=== PATIENT | female | born 1985 | race Caucasian/White ===

== ENCOUNTER 2017-01-30 12:55 | Outpatient (CLI) | payer MEDICAID ==
[~2017-01-30] VITALS: Ht 154.9 cm; Wt 57.9 kg
[~2017-01-30 12:55] MED LIST changes: -CETI10TA20 PO
[2017-01-30] MEDS ORDERED: CETI10TA20 PO (13:13)
[2017-01-30 13:18] VITALS: BP 111/70
[2017-01-30 13:47] LABS: BASOPHILS # (AUTO) 0.1 10^3/uL (0.0-0.1); BASOPHILS % (AUTO) 1 % (0-10); EOSINOPHILS # (AUTO) 0.2 10^3/uL (0.0-0.3); EOSINOPHILS % (AUTO) 3 % (0-10); LYMPHOCYTES # (AUTO) 2.9 X 10^3 (1.0-4.0); LYMPHOCYTES % (AUTO) 36 % (12-44); MEAN CORPUSCULAR HEMOGLOBIN 30 PG (25-34); MEAN CORPUSCULAR HGB CONC 34 G/DL (32-36); MEAN CORPUSCULAR VOLUME 88 FL (80-99); MEAN PLATELET VOLUME 10.5 FL (7.4-10.4); MONOCYTES # (AUTO) 0.7 X 10^3 (0.0-1.0); MONOCYTES % (AUTO) 8 % (0-12); NEUTROPHILS # (AUTO) 4.2 X 10^3 (1.8-7.8); NEUTROPHILS % (AUTO) 52 % (42-75); PLATELET COUNT 252 10^3/uL (130-400); RED BLOOD COUNT 4.59 10^6/uL (4.35-5.85); RED CELL DISTRIBUTION WIDTH 13.1 % (10.0-14.5); WHITE BLOOD COUNT 8.1 10^3/uL (4.3-11.0)
[2017-02-13] MEDS ORDERED: HYDR-3816 PO (11:36)
[2017-02-13] MEDS ORDERED: IBUP-1773 PO (11:36)
[2017-02-13] MEDS ORDERED: SIME80TA16 PO (11:36)
[2017-02-13] MEDS ORDERED: DOCU100C37 PO (11:36)
[2017-02-14] MEDS ORDERED: OXYC-471 PO (09:05)
[2017-02-14] MEDS ORDERED: ONDA4TAB8 PO (09:05)
== END 2017-01-30 16:00 ==
LOC: PREOP 12:55
PROVIDERS: ATTEND Obstetrics & Gynecology
DX: Z01.812 Encounter for preprocedural laboratory examination (principal); Z11.2 Encounter for screening for other bacterial diseases; N87.1 Moderate cervical dysplasia
CPT/HCPCS: 36415; 85025; 86850; 86900; 86901; 87081

== ENCOUNTER → 2017-01-30 | Outpatient (CLI) | payer MEDICAID ==
[~2017-01-30] MED LIST: CETI10TA20 PO; CRS350T PO; CYCL10TA9 PO; HYDR-2997 PO; HYDR1TAB PO; MULT-608; NAPR-243 PO; TRM50T PO
--- NOTE | 2017-01-30 13:42 | Diagnostic Imaging Report ---
INDICATION: Abnormal uterine bleeding, dysmenorrhea. COMPARISON: 05/03/2015. DISCUSSION: Transabdominal and transvaginal sonographic evaluation of the pelvis was performed. The uterus is normal in echotexture and size measuring 8.8 x 4.7 x 3.7 cm. Normal endometrial thickness measuring 0.5 cm. The ovaries appear normal in echotexture and size bilaterally with normal color Doppler blood flow. The right ovary measures 2.6 x 1.6 x 3.1 cm. The left ovary measures 3.0 x 2.6 x 1.8 cm. No abnormal adnexal mass or fluid. IMPRESSION: 1. Unremarkable pelvic ultrasound. Dictated by: Dictated on workstation # [id number]
== END ==
LOC: RAD 12:20
PROVIDERS: ATTEND Obstetrics & Gynecology
DX: N93.8 Other specified abnormal uterine and vaginal bleeding (principal); N94.5 Secondary dysmenorrhea
CPT/HCPCS: 76830; 76856

== ENCOUNTER 2017-02-13 08:35 | Day surgery (SDC) | payer MEDICAID ==
[~2017-02-13] VITALS: Ht 154.9 cm; Wt 57.9 kg
[~2017-02-13 08:35] MED LIST changes: +CETI10TA20 PO
[2017-02-13] MEDS ORDERED: ceFAZolin 1,000 MG (ANCEF) VIAL ONE (08:51)
[2017-02-13] MEDS ORDERED: NS (IVPB) 50 ML ONE (08:51)
[2017-02-13] MEDS ORDERED: ceFAZolin 1 GM/NS 50 ML IVPB IV ONE ×2 (09:00)
[2017-02-13] MEDS ORDERED: metroNIDAZOLE 500 MG/100 ML IVPB (PRE-MIX) IV ONE (09:00)
[2017-02-13] MEDS ORDERED: CATHETER FLUSH 10 ML SYR IV PRN (09:00)
[2017-02-13 09:06] VITALS: BP 120/73
[2017-02-13] MEDS ORDERED: HURRICAINE EXT TUBE (BENZOCAINE) ONE (09:16)
[2017-02-13] MEDS ORDERED: LIDOCAINE PF 2% 5 ML (XYLOCAINE) VIAL ONE (09:16)
[2017-02-13] MEDS ORDERED: SEVOFLURANE (ULTANE) 15 ML INHAL SOLN ONE ×7 (09:16→11:17)
[2017-02-13] MEDS ORDERED: proPOfol 200 MG/20 ML (DIPRIVAN) VIAL IV ONE (09:16)
[2017-02-13] MEDS ORDERED: fentaNYL INJECTION 100 MCG/2 ML AMP ONE (09:16)
[2017-02-13] MEDS ORDERED: MIDAZOLAM 2 MG/2 ML (VERSED) VIAL ONE (09:17)
[2017-02-13] MEDS ORDERED: BUP/EPI 0.5% 1:200,000 (MARCAINE) 10ML VIAL IJ ONE (09:18)
[2017-02-13] MEDS ORDERED: ATRACURIUM 50 MG/5 ML (TRACRIUM) IV ONE (09:21)
[2017-02-13] MEDS: LACTATED RINGERS 1,000 ML IV PRN ×2 (09:39→10:49)
--- NOTE | 2017-02-13 09:57 | Progress Note-Pre Operative ---
Pre-Operative Progress Note H&P Reviewed The H&P was reviewed, patient examined and no changes noted. Date Seen by Provider: Feb 13, 2017 Time Seen by Provider: 09:45 Date H&P Reviewed: Feb 13, 2017 Time H&P Reviewed: 09:50 Pre-Operative Diagnosis: Dysmenorrhea, Recurrent cervical dysplasia AMBER MATA DO Feb 13, 2017 9:57 am
[2017-02-13] MEDS ORDERED: CHLORASEPTIC LOZENGE MM PRN (10:15)
[2017-02-13] MEDS ORDERED: ZOLPIDEM 5 MG (AMBIEN) TAB PO PRN (10:15)
[2017-02-13] MEDS ORDERED: ONDANSETRON 4 MG/2 ML (SDV) Z0FRAN IV PRN (10:15)
[2017-02-13] MEDS ORDERED: DOCUSATE SODIUM 100 MG (COLACE) CAP PO PRN (10:15)
[2017-02-13] MEDS ORDERED: morphine INJ 10 MG/ML 1ML (SYR OR VIAL) ONE (11:15)
[2017-02-13] MEDS ORDERED: GLYCOPYRROLATE 0.2 MG/ML (ROBINUL) 2 ML VIAL ONE (11:27)
[2017-02-13] MEDS ORDERED: NEOSTIGMINE (BLOXIVERZ ) 1 MG/1ML 10 ML VIAL ONE (11:27)
[2017-02-13] MEDS ORDERED: DOCU100C37 PO (11:36)
[2017-02-13] MEDS ORDERED: HYDR-3816 PO (11:36)
[2017-02-13] MEDS ORDERED: IBUP-1773 PO (11:36)
[2017-02-13] MEDS ORDERED: SIME80TA16 PO (11:36)
--- NOTE | 2017-02-13 11:36 | Discharge Inst-Women's Service ---
Discharge Inst-Women's Serv Depart Medication/Instructions New, Converted or Re-Newed RX: RX on Chart Consults/Follow Up Orders/Referrals Dr. Estrada in 7-10 days and in 8 weeks Activity Activity: Activity as Tolerated Driving Instructions: No Driving for 1 Week NO SMOKING: NO SMOKING Nothing Inside Vagina: No Douching, No [place], No Tampons Diet Discharge Diet: No Restrictions Symptoms to Report to : Bleeding Excessive, Pain Increased, Fever Over 101 Degrees F, Vaginal Bleeding Increase, Questions/Concerns For Any Problems or Questions: Contact Your Physician Skin/Wound Care Infection Signs and Symptoms: Increased Redness, Foul Odor of Wound, Increased Drainage, Skin Itchy or Has a Rash, Increased Swelling, Temperature Above 101 F Operative Area Clean and Dry: Keep Incision Clean/Dry Stitches/Provencal/Dermabond: Dermabond, Care of Stitches Bathing Instructions: AMBER Vallejo DO Feb 13, 2017 11:36
[2017-02-13] MEDS: morphine INJ 10 MG/ML 1ML (SYR OR VIAL) IVP PRN ×2 (11:50→11:58)
--- OUTSIDE RECORDS SUMMARY | 2017-02-13 11:52 | XMS REPORT ---
Author Author ABEL PRATER Organization [employer] Address Unknown Phone Unavailable Care Team Providers Care Hotel Attendant Name Role Phone ABEL PRATER CP Unavailable Allergies No Known Allergies Problems Problem Type Condition Code Onset Dates Condition Status Problem Unspecified alopecia 704.00 Active Problem Unspecified episodic mood disorder 296.90 Active Problem Papanicolaou smear of cervix with atypical squamous cells of undetermined significance (ASC-US) 795.01 Active Problem Unspecified myalgia and myositis 729.1 Active Problem Dysmenorrhea 625.3 Active Problem Lumbago 724.2 Active Problem Headache 784.0 Active Problem Generalized anxiety disorder 300.02 Active Problem 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 Problem Routine gynecological examination V72.31 Active Problem Unspecified disorder of skin and subcutaneous tissue 709.9 Active Problem Other diseases of nasal cavity and sinuses 478.19 Active Problem Allergic rhinitis due to pollen 477.0 Active Problem Acute bronchitis 466.0 Active Problem Abdominal pain, right lower quadrant 789.03 Active Problem Need for prophylactic vaccination and inoculation, Influenza V04.81 Active Problem Endometriosis, site unspecified 617.9 Active Problem Other abnormal Papanicolaou smear of vagina and vaginal HPV 795.19 Active Problem Screening for malignant neoplasm of the cervix V76.2 Active Problem Screening examination for venereal disease V74.5 Active Problem Unspecified symptom associated with female genital organs 625.9 Active Problem Other malaise and fatigue 780.79 Active Problem Insomnia, unspecified 780.52 Active Problem Influenza with other respiratory manifestations 487.1 Active Problem Anxiety state, unspecified 300.00 Active Medications No Known Medications Results No Known Results Summary Purpose [employer] Submission
--- OUTSIDE RECORDS SUMMARY | 2017-02-13 11:52 | XMS REPORT ---
Author Author WICHO PHILLIPS Organization [employer] Address Unknown Phone Unavailable Care Team Providers Care Manager Support Name Role Phone WICHO PHILLIPS CP Unavailable Allergies, Adverse Reactions, Alerts Substance Reaction Event Type Valium hives Drug Allergy Problems Problem Type Condition Code Onset Dates Condition Status Assessment Needs flu shot Z23 Active Assessment Cervical cancer screening Z12.4 Active Assessment Menorrhagia N92.0 Active Problem Unspecified alopecia 704.00 Active Problem Unspecified [...] Problem Anxiety state, unspecified 300.00 Active Medications Medication Code System Code Instructions Start Date End Date Status Dosage Tramadol HCl NDC [address]-71 50 MG Orally every 6 hrs when ibuprofen ineffective Apr 19, 2015 1 tablet as needed ZyrTEC NDC 0 10 mg October 23, 2012 1 tablet by Oral route 1 time per day Procedures Procedure Coding System Code Date URINE TEST CPT-4 84550 Apr 19, 2015 SPECIMEN HANDLING CPT-4 01064 Apr 19, 2015 COMPLETE CBC W/AUTO DIFF WBC CPT-4 62427 Apr 19, 2015 SINGLE IMMUNIZATION ADMIN CPT-4 52948 Apr 19, 2015 FLUARIX QUAD (3 & UP)-GSK-2014 CPT-4 19422 Apr 19, 2015 Office Visit, Est Pt., Level 4 CPT-4 25038 Apr 19, 2015 Vital Signs Date/Time: Apr 19, 2015 Temperature 97.6 F Weight 109.8 lbs Height 62 in BMI 20.08 Index Blood Pressure Diastolic 62 mmHg Blood Pressure Systolic 118 mmHg Cardiac Monitoring Heart Rate 68 bpm Results Name Result Date Reference Range Unit Abnormality Flag TEST, URINE (IN HOUSE) Immunizations Vaccine Administration Date FLUARIX QUAD (3 & UP)-GSK-2014Apr 19, 2015 Summary Purpose [employer] Submission
--- OUTSIDE RECORDS SUMMARY | 2017-02-13 11:52 | XMS REPORT ---
Author Author WICHO PHILLIPS Organization [employer] Address Unknown Phone Unavailable Care Team Providers Care Plasterer Apprentice Name Role Phone WICHO PHILLIPS CP Unavailable Allergies, Adverse Reactions, Alerts Substance Reaction Event Type Valium hives Drug Allergy Problems Problem Type Condition Code Onset Dates Condition Status Assessment Abnormal menstrual periods N92.6 Active Assessment Dysuria R30.0 Active Problem Unspecified alopecia 704.00 Active Problem [...] Instructions Start Date End Date Status Dosage ZyrTEC NDC 0 10 mg October 23, 2012 1 tablet by Oral route 1 time per day Procedures Procedure Coding System Code Date URINE CULTURE/COLONY COUNT CPT-4 28405 Apr 17, 2015 Office Visit, Est Pt., Level 3 CPT-4 96106 Apr 17, 2015 URINALYSIS, AUTO, W/O SCOPE CPT-4 02255 Apr 17, 2015 Vital Signs Date/Time: Apr 17, 2015 Temperature 98.2 F Weight 110 lbs Height 62 in BMI 20.12 Index Blood Pressure Diastolic 64 mmHg Blood Pressure Systolic 102 mmHg Cardiac Monitoring Heart Rate 90 bpm Results Name Result Date Reference Range Unit Abnormality Flag UA LONG DIP (IN HOUSE) Summary Purpose [employer] Submission
--- OUTSIDE RECORDS SUMMARY | 2017-02-13 11:52 | XMS REPORT ---
Author Author WICHO PHILLIPS Organization [employer] Address Unknown Phone Unavailable Care Team Providers Care Unix Administrator Name Role Phone WICHO PHILLIPS CP Unavailable Allergies No Known Allergies Problems Problem Type Condition Code Onset Dates Condition Status Assessment Acute cystitis without hematuria N30.00 Active Problem Unspecified alopecia 704.00 Active Problem [...] Instructions Start Date End Date Status Dosage Bactrim DS [facility] [address]-94 800-160 MG Orally 2 times a day for 7 days Apr 21, 2015 1 tablet Results No Known Results Summary Purpose [employer] Submission
--- OUTSIDE RECORDS SUMMARY | 2017-02-13 11:52 | XMS REPORT ---
Author Author WICHO PHILLIPS Organization [employer] Address Unknown Phone Unavailable Care Team Providers Care Critical Care Cns Name Role Phone WICHO PHILLIPS CP Unavailable Allergies No Known Allergies Problems Problem Type Condition Code Onset Dates Condition Status Assessment Low grade squamous intraepithelial lesion on cytologic smear of cervix (LGSIL) R87.612 Active Problem Unspecified episodic mood disorder 296.90 Active Problem Papanicolaou smear of cervix with atypical squamous cells of undetermined significance (ASC-US) 795.01 Active Problem Unspecified myalgia and myositis 729.1 Active Problem Dysmenorrhea 625.3 Active Problem Allergic rhinitis due to pollen 477.0 Active Problem Headache 784.0 Active Problem Abdominal pain, right lower quadrant 789.03 Active Problem Lumbago 724.2 Active Problem Other diseases of nasal cavity and sinuses 478.19 Active Problem Generalized anxiety disorder 300.02 Active Problem Screening examination for venereal disease V74.5 Active Problem Routine gynecological examination V72.31 Active Problem Low grade squamous intraepithelial lesion on cytologic smear of cervix (LGSIL) R87.612 Active Problem Unspecified disorder of skin and subcutaneous tissue 709.9 Active Problem Endometriosis, site unspecified 617.9 Active Problem Acute bronchitis 466.0 Active Problem 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 Problem Need for prophylactic vaccination and inoculation, Influenza V04.81 Active Problem Screening for malignant neoplasm of the cervix V76.2 Active Problem Influenza with other respiratory manifestations 487.1 Active Problem Unspecified symptom associated with female genital organs 625.9 Active Problem Other abnormal Papanicolaou smear of vagina and vaginal HPV 795.19 Active Problem Insomnia, unspecified 780.52 Active Problem Unspecified alopecia 704.00 Active Problem Anxiety state, unspecified 300.00 Active Problem Other malaise and fatigue 780.79 Active Medications No Known Medications Results No Known Results Summary Purpose [employer] Submission
[2017-02-13] MEDS: LACTATED RINGERS 1,000 ML IV SCH ×2 (11:53→14:43)
[2017-02-13] MEDS: KETOROLAC 30 MG/ML VIAL IV PRN ×2 (11:55→18:17)
[2017-02-13] MEDS ORDERED: ONDANSETRON 4 MG/2 ML (SDV) Z0FRAN IVP ONE (12:15)
[2017-02-13 12:45] VITALS: BP 100/51
[2017-02-13] MEDS ORDERED: HYDROcodone/APAP 7.5 MG/325 MG (LORTAB, LORCET PLUS) TABLET PO ONE (13:10)
[2017-02-13] MEDS: HYDROcodone/APAP 7.5 MG/325 MG (LORTAB, LORCET PLUS) TABLET PO PRN ×3 (13:21→23:05)
[2017-02-13 13:30] VITALS: BP 99/65
--- NOTE | 2017-02-13 16:05 | OPERATIVE REPORT ---
DATE OF SERVICE: 02/13/2017 PREOPERATIVE DIAGNOSES: 1. A 31-year-old female with recurrent severe cervical dysplasia. 2. Dysmenorrhea. POSTOPERATIVE DIAGNOSES: 1. A 31-year-old female with recurrent severe cervical dysplasia. 2. Dysmenorrhea. PROCEDURE: Robotic-assisted laparoscopic hysterectomy with bilateral salpingectomy. SURGEON: Dr. Clarke Estrada. ASSITANT: RAZA Britt. ANESTHESIA: General endotracheal. ESTIMATED BLOOD LOSS: Minimal. URINE OUTPUT: 10 mL clear at the end of the procedure but concentrated. FLUIDS: 1400 mL of lactated Ringer's solution. FINDINGS: Hyperemic and slightly bulky appearing uterus with normal-appearing bilateral fallopian tubes and ovaries, normal-appearing external female genitalia. SPECIMENS SENT: Uterus, bilateral fallopian tubes. INDICATIONS FOR PROCEDURE: This 31-year-old female is a patient that was a consultation in my office and had been well counseled in my office secondary to recurrent dysplasia. She had undergone multiple colposcopies and biopsies in the past two to three years. She was extremely anxious about the entire situation. She also is extremely hesitant to have followup due to significant amounts of discomfort she has with exams. This concerns her because on one hand she does not want to come in for painful exams but on the other hand she does not want cervical cancer to progress. She also has significantly painful periods that she has tried in the past to manage with oral contraceptive pills which have not helped. She has also been on Depo-Provera in the past. The patient was counseled about hysterectomy extensively. The risks of bleeding, infection, damaging surrounding structures including but not limited to bowel, bladder, ureter, kidneys and risks for subsequent procedure is needed if anything should occur or if injury to any surrounding organs should occur. After the patient was counseled extensively and all of her questions were answered consent was obtained in the preoperative area and the patient was taken to the operating room. OPERATIVE REPORT IN DETAIL: Once in the operating room, general anesthesia was found to be adequate. She was placed in the dorsal lithotomy position and prepped and draped in the normal sterile fashion. She was first examined under anesthesia. The uterus was mildly enlarged, freely mobile. There is no adnexal fullness or masses appreciated on bimanual examination. A weighted speculum was inserted in the patient's vagina. A right angle retractor was used to visualize the cervix. It was grasped at the 12 o'clock position using a single tooth tenaculum and 0 Vicryl suture was placed through the anterior lip of the cervix and tenaculum was removed. I then sounded the uterine cavity depth to 8 cm. I then inserted an 8 cm Dominique uterine manipulator tip and a 3.5 colpotomy ring. I advanced the manipulator tip into the endometrial canal, deployed the balloon and advanced the colpotomy ring around the vaginal fornix. Once this was in place, I am able to remove all other instruments from the patient's vagina. Kc catheter was placed using sterile technique. I then performed a change of gloves and took my attention to the abdomen where infraumbilically I infiltrated this area using 0.25% Marcaine and made an 8 mm incision. I directed a Veress needle to this incision until intraperitoneal placement was confirmed using saline drop test. I then proceeded with insufflation using CO2 gas. An opening pressure of 4 mmHg was noted. I proceeded to a maximum pressure of 50 mmHg, at which point I removed the Veress needle and introduced an 8 mm blunt da Sarah camera trocar. Once this was in place I am able to confirm intraperitoneal placement. I then placed two lateral trocars approximately 8 cm lateral to my infraumbilical trocars. These were both 8 mm incisions. The skin was infiltrated using 0.25% Marcaine and the trocars were directed under direct visualization with laparoscope. Once they were in place, I brought in the da Sarah robot and docked it in the appropriate fashion. Once it was docked, I placed the vessel sealer in the left hand and the monopolar ronaldo in the right hand. I performed the following dissection bilaterally. I created a window in the mesosalpinx using monopolar ronaldo and amputate the fallopian tube from the mesosalpinx from proximal to distal ampullary portion using the vessel sealer. Once this was done I grasped the uteroovarian ligament, bipolar cauterized and transected using the vessel sealer. I then grabbed the round ligament, bipolar cauterizing it and transected this using the vessel sealer. I then was able to grab the entire broad ligament, bipolar cauterizing it and transecting it using the vessel sealer down to the level of the lower uterine segment at which point I the anterior posterior leaflets. The anterior leaflet was taken around the posterior vaginal fornix. The posterior leaflet was taken around the posterior vaginal fornix. This allowed me to skeletonize the uterine vessels laterally. I bipolar cauterized them and transected them using the vessel sealer. I then performed a colpotomy using monopolar ronaldo at the 12 o'clock position and followed the colpotomy ring with a Dominique uterine manipulator circumferentially using the monopolar ronaldo, amputating the cervix away from the vaginal fornix. Once it was completely amputated, the cervix, uterus and bilateral fallopian tubes were removed through the vagina. I then closed the vaginal cuff using 2-0 Vicryl suture in a caqbbw-qk-ovxom fashion and the lateral vaginal apices colposuspending them to the uterosacral ligaments. I then closed the remainder of the vaginal cuff using 2-0 V-Loc in a running fashion. There was no active bleeding noted from any dissection planes. I then undocked the da Sarah robot and proceeded with the remainder of the case laparoscopically. I copiously irrigated the pelvis using normal saline. Once again, there was no active bleeding noted from any of my dissection planes. I placed FloSeal hemostatic agent over all my planes of dissection and had the patient taken out of steep Trendelenburg. I removed the lateral trocars under direct visualization laparoscopically. There was no active bleeding noted from the trocar sites. I then released insufflation through my infraumbilical trocar and introduced 10 mL of 0.25% Marcaine into the peritoneal cavity for postoperative pain management. I then removed this trocar as well. I closed with incision using 4-0 Monocryl in an interrupted subcuticular fashion. Dermabond was applied to the incision and Band-Aids were placed over these. One gram of Ancef and 500 mg of Flagyl were given preoperatively for infection prophylaxis. The patient tolerated the procedure well and was sent to the recovery area in stable condition. Job ID: [id number] DocumentID: [id number] Dictated Date: 02/13/2017 12:09:34 Passenger Barge Master Date: 02/13/2017 16:04:22 Dictated By: DO MARYANNE HUYNH
[2017-02-13 16:40] VITALS: BP 95/59
[2017-02-13] MEDS: ANTACID SUSP 30 ML UDC (MYLANTA) PO PRN (19:48)
[2017-02-13 20:00] VITALS: BP 91/59
[2017-02-13] MEDS: SIMETHICONE 80 MG (MYLICON) CHEW PO PRN (23:08)
[2017-02-14] VITALS: BP 95/60
[2017-02-14] MEDS: KETOROLAC 30 MG/ML VIAL IV PRN (00:11)
[2017-02-14] MEDS: LACTATED RINGERS 1,000 ML IV SCH (02:04)
[2017-02-14] MEDS: ANTACID SUSP 30 ML UDC (MYLANTA) PO PRN (02:26)
[2017-02-14] MEDS ORDERED: IBUPROFEN 600 MG (MOTRIN) TAB PO PRN (02:45)
[2017-02-14 04:00] VITALS: BP 102/66
[2017-02-14] MEDS: HYDROcodone/APAP 7.5 MG/325 MG (LORTAB, LORCET PLUS) TABLET PO PRN (05:02)
[2017-02-14] MEDS: SIMETHICONE 80 MG (MYLICON) CHEW PO PRN (06:27)
[2017-02-14 08:00] VITALS: BP 93/60
[2017-02-14] MEDS ORDERED: ONDA4TAB8 PO (09:05)
[2017-02-14] MEDS ORDERED: OXYC-471 PO (09:05)
[2017-02-14] MEDS ORDERED: ONDANSETRON 4 MG (ZOFRAN) ORAL DISSOLVE TAB PO PRN (09:15)
[2017-02-14] MEDS ORDERED: oxyCODONE/APAP 5/325MG (PERCOCET 5) TABLET PO PRN (09:15)
--- NOTE | 2017-02-14 10:00 | Anesthesia-General Post-Op ---
General Patient Condition Mental Status/LOC: Same as Preop Cardiovascular: Satisfactory Nausea/Vomiting: Absent Respiratory: Satisfactory Pain: Controlled Complications: Absent Post Op Complications Complications None Follow Up Care/Instructions Patient Instructions None needed. Anesthesia/Patient Condition Patient Condition Patient is doing well, no complaints, stable vital signs, no apparent adverse anesthesia problems. No complications reported per nursing. BANDAR VELARDE CRNA Feb 14, 2017 10:00
[2017-02-14 11:05] VITALS: BP 93/60
== END 2017-02-14 11:05 | disposition home or self-care (01) ==
LOC: SDC 08:35 → WS 12:49 → SDC 02-14 11:05
PROVIDERS: ATTEND Obstetrics & Gynecology
DX: D06.9 Carcinoma in situ of cervix, unspecified (principal); N94.6 Dysmenorrhea, unspecified; F17.210 Nicotine dependence, cigarettes, uncomplicated; M54.5 Low back pain
CPT/HCPCS: 84703; 87081; 88307; 94664; 96361; 96375; 96376

== ENCOUNTER → 2021-10-08 | Outpatient (CLI) | payer MEDICAID ==
[~2021-10-08] MED LIST changes: -CETI10TA20 PO; +CETI10TA49 PO; +DOCU100C37 PO; +HYDR-34 PO; +IBUP-1773 PO; +ONDA4TAB8 PO; +OXYC1TAB11 PO; +SIME80TA16 PO
--- NOTE | 2021-10-08 12:57 | Diagnostic Imaging Report ---
INDICATION: Palpable lump right breast. COMPARISON: No prior mammograms are available for comparison. TECHNIQUE: Unilateral right 2D and 3D diagnostic mammography was performed with CAD. A BB marker was placed at the area of palpable abnormality in the inferior retroareolar right breast. FINDINGS: The right breast is heterogeneously dense, limiting the sensitivity of mammography. No dominant mass is identified. No malignant-appearing microcalcifications are seen. The right axilla is unremarkable. IMPRESSION: No discrete mass is identified; however, there is markedly dense breast tissue. Further evaluation of the area of palpable abnormality in the right breast with ultrasound is recommended and will be performed today. ACR BI-RADS Category 0: Incomplete. (Needs additional imaging evaluation). Result letter will be mailed to the patient. Note: At least 10% of breast cancer is not imaged by mammography. Dictated by: Dictated on workstation # [id number]
--- NOTE | 2021-10-08 13:29 | Diagnostic Imaging Report ---
INDICATION: Palpable lump right breast. COMPARISON: Correlation is made with the diagnostic mammogram from earlier this same day. FINDINGS: Sonographic interrogation of the area of lump in the right breast was performed. This corresponds to the 7-8 o'clock retroareolar location. There are numerous cysts located in this area. The largest measures approximately 11 mm and likely accounts for the palpable abnormality. No solid masses are seen. IMPRESSION: Numerous right breast cysts, likely accounting for the patient's palpable abnormality. No concerning sonographic finding is identified. ACR BI-RADS Category 2: Benign findings. Dictated by: Dictated on workstation # [id number]
== END ==
LOC: RAD 12:45
PROVIDERS: ATTEND Obstetrics & Gynecology
DX: N60.01 Solitary cyst of right breast (principal)
CPT/HCPCS: 76642; 77065; G0279